=== PATIENT | female | born 1960 | race Caucasian/White ===

== ENCOUNTER 2019-01-14 02:44 | Emergency (ER) | payer OTHER ==
[~2019-01-14] VITALS: Ht 172.7 cm; Wt 72.6 kg
--- NOTE | 2019-01-14 02:51 | NUR ---
Patient BIB [facility] for c/o pain all over her body. Patient was able to ambulate from EMS gurney onto ER bed with a stable gait. A/Ox3. Speech is clear, speaks in complete sentences. Pain is described as a burning sensation. No neuro deficits noted. Respiratory even and unlabored, no sob, no cough. No cardiovascular distress noted. Patient in bed at lowest position, sr upx2, call light within reach. Fall precautions implemented per protocol.
--- NOTE | 2019-01-14 02:51 | NUR ---
ERMD at bedside for MSE
[2019-01-14] MEDS ORDERED: OXYCODONE/APAP 5-325 MG TABLET PO ONE (03:00)
[2019-01-14] MEDS ORDERED: ONDANSETRON ODT 4 MG TAB.RAPDIS SL ONE (03:00)
[2019-01-14] MEDS ORDERED: ONDANSETRON ODT 4 MG TAB.RAPDIS ONE (03:08)
[2019-01-14] MEDS ORDERED: OXYCODONE/APAP 5-325 MG TABLET ONE (03:08)
[2019-01-14 03:20] LABS: *BILIRUBIN,URIN NEGATIVE (NEGATIVE); *BLOOD, URINE NEGATIVE (NEGATIVE); *CLARITY,URINE CLEAR (CLEAR); *COLOR,URINE YELLOW (YELLOW); *KETONES,URINE NEGATIVE (NEGATIVE); *UROBILINOGEN,URINE 0.2 E.U./dl (NORMAL); LEUKOCYTE ESTERASE ,URINE NEGATIVE (NEGATIVE); NITRITE, URINE NEGATIVE (NEGATIVE); UGLUCOSE NEGATIVE (NEGATIVE)
--- NOTE | 2019-01-14 03:40 | NUR ---
Patient discharged to home in stable conditon. Written and verbal after care instructions given. Patient verbalizes understanding of instructions. Ambulated from ER with stable gait. All belongings with patient.
[2019-01-14 03:43] VITALS: BP 127/81
--- NOTE | 2019-01-14 03:43 | NUR ---
Patient denies being homeless at this time.
== END 2019-01-14 03:43 | disposition home or self-care (01) ==
LOC: ER 02:48
DX: G89.29 Other chronic pain (principal); M79.10 Myalgia, unspecified site; F17.200 Nicotine dependence, unspecified, uncomplicated
CPT/HCPCS: A4663; Q0162